=== PATIENT | female | born 1985 | race Caucasian/White ===

== ENCOUNTER 2018-11-02 11:18 | Emergency (ER) | payer OTHER ==
[~2018-11-02] VITALS: Ht 162.6 cm; Wt 56.0 kg
[2018-11-02 12:30] LABS: BASOPHILS # (AUTO) 0.05 x10^3/uL (0-0.1); BASOPHILS % (AUTO) 0 % (0-1); EOSINOPHILS # (AUTO) 0.12 x10^3/uL (0-0.4); EOSINOPHILS % (AUTO) 1 % (1-7); LYMPHOCYTES # (AUTO) 1.64 x10^3/uL (1-3.4); LYMPHOCYTES % (AUTO) 14 % (22-44); MD NO; MEAN CORPUSCULAR HGB CONC 33.3 g/dL (32.4-35.8); MONOCYTES # (AUTO) 0.57 x10^3/uL (0.2-0.8); MONOCYTES % (AUTO) 5 % (2-9); NEUTROPHILS # (AUTO) 9.07 x10^3/uL (1.8-6.8); NEUTROPHILS % (AUTO) 79 % (42-75); PLATELET COUNT 249 x10^3/uL (130-400); RED CELL DISTRIBUTION WIDTH 13.5 % (9.6-15.2)
[2018-11-02] MEDS ORDERED: SODIUM CHLORIDE FLUSH 10ML SYR IVF ONE (12:30)
[2018-11-02 12:43] LABS: ALBUMIN 3.9 g/dL (3.4-5.0); ANION GAP 6 mmol/L (5-15); CALCIUM 8.9 mg/dL (8.5-10.1); CHLORIDE 108 mmol/L (98-107)
[2018-11-02 12:44] LABS: CREATININE 0.79 mg/dL (0.55-1.02)
--- NOTE | 2018-11-02 12:46 | NUR ---
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 TO GO TO ROOM AFTER EXAM COMPLETED.
--- NOTE | 2018-11-02 13:03 | NUR ---
PATIENT PRESENTS TO ED TODAY FOR LIGHT SPOTTING 2 DAYS AGO, REPORTS VAG BLEEDING WITH CLOTS AND ABD CRAMPING STARTING TODAY. A1. LMP-09/20/18, 5-6 WEEKS PER PATIENT. PATIENT BACK FROM US AND IN ROOM 10 AT THIS TIME, AWAITING RESULTS AND FURTHER ORDERS, CALL LIGHT WITHIN REACH. FAMILY AT BEDSIDE. Addendum: 11/02/18 at 1802 by MARK CORRECTION A1.
[2018-11-02] MEDS ORDERED: FEXO60TA24 PO (13:09)
[2018-11-02 14:12] VITALS: BP 93/61
--- NOTE | 2018-11-02 14:12 | NUR ---
PATIENT SITTING IN GURNEY SPEAKING WITH FAMILY AT BEDSIDE, VS UPDATED IN CHART. NURYS.
--- NOTE | 2018-11-02 14:37 | NUR ---
Patient/Caregiver given discharge instructions and they have confirmed that they understand the instructions. Patient ambulatory with steady gait.
== END 2018-11-02 14:39 | disposition home or self-care (01) ==
LOC: ED 14:20
DX: O03.4 Incomplete spontaneous abortion without complication (principal)
CPT/HCPCS: 36415; 76801; 80048; 82040; 84702; 85025; 86901; 99284